=== PATIENT | male | born 1990 | race Caucasian/White ===

== ENCOUNTER 2018-05-06 02:16 | Emergency (ER) | payer OTHER, MEDICAID, SELFPAY ==
[2018-05-06 02:20] VITALS: BP 150/96; PULSE 84; RESP 21; TEMP 36.9; O2SAT 98; BMI 38.0
[2018-05-06 04:15] VITALS: BP 148/92; PULSE 83; RESP 12; O2SAT 98
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
== END 2018-05-06 04:15 | disposition home or self-care (01) ==
PROVIDERS: Emergency Provider Emergency Medicine
DX: S01.81XA Laceration without foreign body of other part of head, initial encounter (principal); Y04.2XXA Assault by strike against or bumped into by another person, initial encounter
CPT/HCPCS: 12015; 99283

== ENCOUNTER 2018-06-05 14:04 | Emergency (ER) | payer OTHER, SELFPAY ==
[2018-06-05 14:15] VITALS: BP 151/81; PULSE 85; RESP 20; TEMP 36.5; O2SAT 98
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
--- NOTE | 2018-06-05 14:29 | DI.RAD.S_ITS ---
PROCEDURE: XR HIP W PEL IF DONE LT 2V INDICATIONS: left thigh/hip pain TECHNIQUE: AP pelvis with lateral view(s) of the left hip(s). COMPARISON: None. FINDINGS: Bones: No fractures or dislocations. Pelvic ring appears intact. No suspicious bony lesions. Surgical screws are noted overlying the right hip. Calcification is noted adjacent to the right acetabulum possibly related to old injury. Minimal bilateral hip joint narrowing is noted. Soft tissues: The visualized bowel gas pattern is normal. No suspicious soft tissue calcifications. IMPRESSION: No visualized acute fracture or dislocation. However, if clinical concern and/or pain persist, short interval imaging followup in 7-10 days is recommended, as occult injury cannot be definitively excluded. Dictated by: Shazia Callaway M.D. on 06/05/2018 at 15:04 Approved by: Shazia Callaway M.D. on 06/05/2018 at 15:06
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
[2018-06-05] MEDS: IBUPROFEN 400 MG TABLET 800 MG PO (14:46)
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
== END 2018-06-05 16:11 | disposition home or self-care (01) ==
PROVIDERS: Emergency Provider Emergency Medicine
DX: S70.12XA Contusion of left thigh, initial encounter (principal); W17.89XA Other fall from one level to another, initial encounter
CPT/HCPCS: 73502; 76882; 99282; 99283